=== PATIENT | female | born 1960 | race Caucasian/White ===

== ENCOUNTER → 2020-03-31 14:07 | Outpatient (CLI) | payer BC, SELFPAY ==
--- NOTE | ~2020-03-31 | US_ITS ---
These refer to mammography report dated 03/31/2020 for details. Reviewed, dictated and finalized at location [facility]. STUDY MANAGER
--- NOTE | ~2020-03-31 | MM_ITS ---
EXAMINATION: MM diagnostic elena BI w al HISTORY: Right breast pain TECHNIQUE: Additional 3-D tomosynthesis images of the breasts were performed and synthetic 2-D images were generated. CAD analysis was submitted and interpreted. High resolution Limited right breast ult rasound was performed. COMPARISON: Comparison to multiple prior studies sequentially, with oldest reviewed study dated 07/20. BREAST PARENCHYMAL COMPOSITION: Breast composed of scattered areas of fibroglandular density. FINDINGS: MAMMOGRAPHIC FINDINGS: There are no suspicious masses, calcifications or architectural distortion in the either breast to joaquin ggest malignancy. ULTRASOUND: Limited right breast ultrasound: At 10:00, 6 cm from the nipple, there is an oval hypoechoic mass measuring 5 mm with echogenic hilum , possibly benign intramammary lymph node. At 12:00, 3 cm from the nipple there is a 3 mm cyst. IMPRESSION: 1. Probable benign 5 mm mass of the right breast at 10:00, 6 cm from the nipple. 2. Recommend 6 month follow-up right breast ultrasound BI-RADS category 3, probably benign findings. Reviewed, dictated and finalized at location [facility]. [employer] IMPRESSION: 1. Probable benign 5 mm mass of the right breast at 10:00, 6 cm from the nipple . 2. Recommend 6 month follow-up right breast ultrasound BI-RADS category 3, probably benign findings.
== END ==
PROVIDERS: PCP Nurse Practitioner Family; Visit Provider Nurse Practitioner Family
DX: Z12.31 Encounter for screening mammogram for malignant neoplasm of breast (principal); N64.4 Mastodynia; R92.8 Other abnormal and inconclusive findings on diagnostic imaging of breast
CPT/HCPCS: 76642; 77062; 77066; G0279

== ENCOUNTER → 2020-10-20 11:28 | Outpatient (CLI) | payer BC, SELFPAY ==
--- NOTE | ~2020-10-20 | US_ITS ---
US breast RT limited DATE: 10/20/2020 11:56 INDICATION: Six-month follow-up for probable benign 5 mm mass of right breast at 10:00 6 cm from nipp le TECHNIQUE: High-resolution ultrasound imaging of right breast targeted at 10:00 6 cm from nipple and 12:00 3 cm from nipple COMPARISON: 03/31/2020 bilateral diagnostic digital mammogram and limited right breast ultrasound FINDINGS: 10:00 6 cm from nipple: Diminished size of parallel circumscribed hypoechoic lesion, curren tly measuring approximately 1.1 x 2.9 x 2.2 mm, compared to 2.5 x 3.2 x 4.6 mm on 03/31/2020. 12:00 3 cm from nipple: Parallel circumscribed 2.5 x 3.9 mm sonolucency, not significantly changed si nce 03/31/2020 IMPRESSION: BI-RADS Category 2: Benign Recommendation: Routine mammographic screening Reviewed, dictated and finalized at [facility]. Reviewed, dictated and finalized at location A.
== END ==
PROVIDERS: PCP Nurse Practitioner Family; Visit Provider Nurse Practitioner Family
DX: N63.15 Unspecified lump in the right breast, overlapping quadrants (principal); N63.11 Unspecified lump in the right breast, upper outer quadrant
CPT/HCPCS: 76642